=== PATIENT | female | born 1960 | race Caucasian/White ===

== ENCOUNTER 2018-04-17 03:50 | Emergency (ER) | payer OTHER ==
[~2018-04-17] VITALS: Ht 152.4 cm; Wt 77.3 kg
[~2018-04-17 03:50] MED LIST: CYCL5TAB PO; METF500T7 PO; SIMV-260 PO
[2018-04-17 04:08] LABS: GLUCOSE,POINT OF CARE 134 MG/DL (70-110)
[2018-04-17 05:35] VITALS: BP 146/86
== END 2018-04-17 05:36 | disposition home or self-care (01) ==
LOC: EMS 03:52
DX: T18.9XXA Foreign body of alimentary tract, part unspecified, initial encounter (principal); E11.9 Type 2 diabetes mellitus without complications; E78.00 Pure hypercholesterolemia, unspecified; X58.XXXA Exposure to other specified factors, initial encounter; Y93.89 Activity, other specified; Y92.89 Other specified places as the place of occurrence of the external cause; Y99.8 Other external cause status
CPT/HCPCS: 74018; 99284

== ENCOUNTER 2021-06-06 10:45 | Emergency (ER) | payer OTHER ==
[~2021-06-06] VITALS: Ht 160 cm; Wt 75.0 kg
[~2021-06-06 10:45] MED LIST changes: +METF-911 PO; -METF500T7 PO
[2021-06-06] MEDS ORDERED: SIMV-261 PO (12:40)
[2021-06-06] MEDS ORDERED: LIDOCAINE 5% TRANSDERMAL PATCH TD ONE (12:45)
[2021-06-06] MEDS ORDERED: IBUPROFEN 600 MG TABLET PO ONE (12:45)
[2021-06-06] MEDS ORDERED: METHOCARBAMOL 500 MG TABLET PO ONE (12:45)
[2021-06-06 14:01] VITALS: BP 139/71
== END 2021-06-06 15:10 | disposition home or self-care (01) ==
LOC: EMS 11:25
DX: M54.2 Cervicalgia (principal); E11.9 Type 2 diabetes mellitus without complications; V43.52XA Car driver injured in collision with other type car in traffic accident, initial encounter; Y93.89 Activity, other specified; Y92.89 Other specified places as the place of occurrence of the external cause; Y99.8 Other external cause status
CPT/HCPCS: 71046; 72040; 82962; 93005; 99284

== ENCOUNTER 2023-04-09 22:29 | Emergency (ER) | payer OTHER ==
[~2023-04-09] VITALS: Ht 154.9 cm; Wt 74.1 kg
[~2023-04-09 22:29] MED LIST changes: -CYCL5TAB PO; +METF-81 PO; -METF-911 PO; -SIMV-260 PO; +SIMV-261 PO
[2023-04-09] MEDS ORDERED: LISI-893 PO (22:41)
[2023-04-09] MEDS ORDERED: ASPI-1450 PO (22:41)
[2023-04-09 23:04] LABS: APPEARANCE,URINE CLEAR (CLEAR); BILIRUBIN,URINE NEGATIVE (NEGATIVE); GLUCOSE, URINE (UA) NEGATIVE (NEGATIVE); KETONES,URINE NEGATIVE (NEGATIVE); LEUKOCYTE ESTERASE ,URINE SMALL (NEGATIVE); NITRATE,URINE NEGATIVE (NEGATIVE); OCCULT BLOOD,URINE TRACE (NEGATIVE); PH,URINE 6.5 (5.0-8.0); PROTEIN,URINE TRACE mg/dL (NEGATIVE); SPECIFIC GRAVITIY, URINE 1.012 (1.003-1.030); UROBILINOGEN,URINE <=1.0 mg/dL (<=1.0)
[2023-04-09 23:19] LABS: BACTERIA,URINE None Seen /HPF (None Seen); SQUAMOUS EPITHELIAL CELL,UR Few /LPF (None Seen)
[2023-04-10] MEDS ORDERED: CEPHALEXIN MONOHYDRATE 500 MG CAPSULE PO ONE (00:30)
[2023-04-10] MEDS ORDERED: PHENAZOPYRIDINE HCL 100 MG TABLET PO ONE (00:30)
[2023-04-10 00:47] VITALS: BP 153/86
== END 2023-04-10 00:49 | disposition home or self-care (01) ==
LOC: EMS 22:30
DX: N39.0 Urinary tract infection, site not specified (principal); E11.9 Type 2 diabetes mellitus without complications; E78.00 Pure hypercholesterolemia, unspecified; Z90.710 Acquired absence of both cervix and uterus; Z98.890 Other specified postprocedural states
CPT/HCPCS: 81001; 87086; 87186; 99283

== ENCOUNTER 2024-02-29 06:56 | Emergency (ER) | payer OTHER ==
[~2024-02-29] VITALS: Ht 154.9 cm; Wt 75.0 kg
[~2024-02-29 06:56] MED LIST changes: +ASPI-1450 PO; +LISI-893 PO
[2024-02-29 07:00] VITALS: TEMP 98.4
[2024-02-29] MEDS ORDERED: ATOR40TA28 PO (07:04)
[2024-02-29] MEDS ORDERED: METF-1211 PO (07:04)
[2024-02-29 07:47] LABS: APPEARANCE,URINE TURBID (CLEAR); BILIRUBIN,URINE NEGATIVE (NEGATIVE); COLOR,URINE ORANGE (YELLOW); GLUCOSE, URINE (UA) NEGATIVE (NEGATIVE); KETONES,URINE NEGATIVE (NEGATIVE); LEUKOCYTE ESTERASE ,URINE LARGE (NEGATIVE); NITRATE,URINE POSITIVE (NEGATIVE); OCCULT BLOOD,URINE LARGE (NEGATIVE); PROTEIN,URINE 100-200,SEE CONFIRM mg/dL (NEGATIVE); SPECIFIC GRAVITIY, URINE 1.016 (1.003-1.030); UROBILINOGEN,URINE <=1.0 mg/dL (<=1.0)
[2024-02-29 07:58] LABS: SULFOSALICYLIC ACID,URINE 2+ (Negative)
[2024-02-29 07:59] LABS: BACTERIA,URINE Many /HPF (None Seen); RBC,URINE Full Field /HPF (0-2); WBC,URINE Full Field /HPF (0-5)
[2024-02-29] MEDS ORDERED: PHEN-674 PO (08:03)
[2024-02-29] MEDS ORDERED: NITR-75 PO (08:03)
[2024-02-29 08:12] VITALS: BP 138/88; PULSE 94; RESP 16
== END 2024-02-29 08:29 | disposition home or self-care (01) ==
LOC: EMS 06:58
DX: N39.0 Urinary tract infection, site not specified (principal); E11.9 Type 2 diabetes mellitus without complications; E78.00 Pure hypercholesterolemia, unspecified; I10 Essential (primary) hypertension; Z90.710 Acquired absence of both cervix and uterus; Z98.890 Other specified postprocedural states
CPT/HCPCS: 81001; 81002; 82962; 87086; 87186; 99283

== ENCOUNTER 2025-09-06 11:27 | Emergency (ER) | payer OTHER ==
[~2025-09-06] VITALS: Ht 154.9 cm; Wt 79.5 kg
[~2025-09-06 11:27] MED LIST changes: +ATOR40TA28 PO; +METF-1211 PO; -METF-81 PO; +NITR-104 PO; +PHEN-674 PO; -SIMV-261 PO
[2025-09-06 11:39] VITALS: BP 142/60; PULSE 76; RESP 18; TEMP 98.1; O2SAT 99
[2025-09-06 11:55] LABS: APPEARANCE,URINE TURBID (CLEAR); GLUCOSE, URINE (UA) >=1000 mg/dL (NEGATIVE); LEUKOCYTE ESTERASE ,URINE LARGE (NEGATIVE); NITRATE,URINE NEGATIVE (NEGATIVE); OCCULT BLOOD,URINE LARGE (NEGATIVE); SPECIFIC GRAVITIY, URINE 1.021 (1.003-1.030)
[2025-09-06 12:03] LABS: SULFOSALICYLIC ACID,URINE 3+ (Negative)
[2025-09-06] MEDS ORDERED: CEPH-558 PO (12:13)
[2025-09-06] MEDS: CEPHALEXIN MONOHYDRATE 500 MG CAPSULE PO ONE (12:30)
== END 2025-09-06 13:05 | disposition home or self-care (01) ==
LOC: EMS 11:27
DX: N39.0 Urinary tract infection, site not specified (principal); R30.0 Dysuria; E11.9 Type 2 diabetes mellitus without complications; E78.00 Pure hypercholesterolemia, unspecified; I10 Essential (primary) hypertension; Z79.82 Long term (current) use of aspirin; Z98.890 Other specified postprocedural states; Z90.710 Acquired absence of both cervix and uterus; Z79.899 Other long term (current) drug therapy
CPT/HCPCS: 81001; 81002; 87077; 87086; 87186; 99283